=== PATIENT | female | born 1940 | race Caucasian/White ===

== ENCOUNTER → 2019-12-28 | Outpatient (CLI) | payer MEDICARE, OTHER ==
[~2019-12-28] MED LIST: ASPI81TA86 PO; COUM6TAB10 PO; CVS500CA5 PO; LIPI80TA PO; LORA1TAB4 PO; METO1TAB32 PO; SERT50TA29 PO
== END ==
LOC: M LABSMTC 09:48
PROVIDERS: ATTEND Anesthesiology
DX: Z01.818 Encounter for other preprocedural examination (principal); Z11.59 Encounter for screening for other viral diseases
CPT/HCPCS: C9803; U0003

== ENCOUNTER 2019-12-31 09:34 | Day surgery (SDC) | payer BC, MEDICARE, OTHER ==
[~2019-12-31] VITALS: Ht 170.2 cm; Wt 67.6 kg
[~2019-12-31 09:34] MED LIST changes: +ACETAMINOPHEN 325 MG TAB PO PRN; +ASPI81TA85 PO; -ASPI81TA86 PO; +CYCLOPENTOLATE 2% OPHTH SOLN 2ML BTL OD ONE; +LIDOCAINE 3.5 % 1ML OPHTH TOPICAL GEL OU ONE; +OFLOXACIN 0.3 % (OCUFLOX) OPTH SOL 5ML OD ONE; +PHENYLEPHRINE 2.5% OPHTH SOL 2ML OD ONE; +PHENYLEPHRINE HCL 10 % OPHTH. SOL 5ML OD PRN; +PROPARACAINE 0.5% OPHTH SOL 15ML OD PRN; +TROPICAMIDE 1% OPHTH SOLN 2ML OD ONE
[2019-12-31] MEDS ORDERED: MIDAZOLAM INJ 2MG/2ML VIAL (J2250 PER 1MG) As Ordered ONE (11:04)
[2019-12-31] MEDS ORDERED: fentaNYL 100 MCG/2 ML INJECTION (J3010) As Ordered ONE (11:04)
[2019-12-31] MEDS ORDERED: TRIMETHOBENZAMIDE 300 MG CAP PO PRN (12:15)
[2019-12-31] MEDS ORDERED: KETOROLAC 0.5% OPHTH SOLN OD ONE (12:15)
[2019-12-31] MEDS ORDERED: AcetaZOLAMIDE 500 MG ER CAP PO ONE (12:15)
[2019-12-31 12:30] VITALS: BP 129/93
[2019-12-31] MEDS ORDERED: POVIDONE-IODINE 5% OPHTH PREP SOL 30ML As Ordered ONE (13:29)
[2019-12-31] MEDS ORDERED: BALANCED SALT IRRIGATION SOLUTION 500ML BAG (FOR OR EYE MACHINE) As Ordered ONE (13:29)
[2019-12-31] MEDS ORDERED: LIDOCAINE 1% SDV 5ML VIAL As Ordered ONE (13:29)
[2019-12-31] MEDS ORDERED: HEALON DUET PRO(HEALON 10MG/ML 0.55ML & HEALON ENDOCOAT 30MG/ML 0.85ML) As Ordered ONE (13:29)
[2019-12-31] MEDS ORDERED: CEFUROXIME 1MG/0.1ML INTRACAMERAL INJ As Ordered ONE (13:29)
== END 2019-12-31 12:50 | disposition home or self-care (01) ==
LOC: M SDC 09:34
PROVIDERS: ATTEND Ophthalmology
DX: H25.11 Age-related nuclear cataract, right eye (principal); I10 Essential (primary) hypertension; I25.2 Old myocardial infarction; I25.10 Atherosclerotic heart disease of native coronary artery without angina pectoris; Z98.61 Coronary angioplasty status; Z79.01 Long term (current) use of anticoagulants; K21.9 Gastro-esophageal reflux disease without esophagitis; Z79.82 Long term (current) use of aspirin; Z79.899 Other long term (current) drug therapy
CPT/HCPCS: 66984; 92015; J2250; J3010